=== PATIENT | female | born 1930 | race Two or more races ===

== ENCOUNTER 2020-01-06 20:38 | Emergency (ER) | payer MEDICARE, OTHER ==
[~2020-01-06] VITALS: Ht 165.1 cm; Wt 65.8 kg
--- NOTE | 2020-01-06 20:53 | NUR ---
Patient walked into Er from home accompanied by son for redness on left forearm since this morning, possible insect bite per son. Left forearm with erythema, and warm to touch.
--- NOTE | 2020-01-06 20:54 | NUR ---
Dr. Honeycutt at bedside for MSE.
[2020-01-06] MEDS ORDERED: CLON1TAB12 PO (21:10)
[2020-01-06] MEDS ORDERED: levothyroxine PO (21:10)
[2020-01-06] MEDS ORDERED: SOLI5TAB2 PO (21:10)
[2020-01-06] MEDS ORDERED: CHOL10002 PO (21:10)
[2020-01-06] MEDS ORDERED: GABA-532 PO (21:10)
[2020-01-06] MEDS ORDERED: LINA72CA PO (21:10)
[2020-01-06] MEDS ORDERED: LOSA25TA27 PO (21:10)
[2020-01-06 21:11] VITALS: BP 167/95
--- NOTE | 2020-01-06 21:11 | NUR ---
Patient discharged to home in stable condition. Written and verbal after care instructions given. Patient verbalizes understanding of instructions. Stressed follow up or return to ER for worsening s/s. patient left with stable gait.
== END 2020-01-06 21:12 | disposition home or self-care (01) ==
LOC: EDBD 20:42 → ER 20:42
DX: L23.9 Allergic contact dermatitis, unspecified cause (principal); R03.0 Elevated blood-pressure reading, without diagnosis of hypertension
CPT/HCPCS: A4663